=== PATIENT | male | born 1995 | race Caucasian/White ===

== ENCOUNTER 2022-01-27 17:28 | Emergency (ER) | payer OTHER ==
[2022-01-27 17:52] VITALS: BP 138/66; PULSE 69; TEMP 98; BMI 25.7
[2022-01-27] MEDS ORDERED: IBUPROFEN 600 MG TABLET (FP) PO ONE ×2 (18:47→18:48)
[2022-01-27] MEDS ORDERED: ACETAMINOPHEN 500 MG TABLET (FP) PO ONE (18:47)
[2022-01-27] MEDS ORDERED: ACETAMINOPHEN 500 MG TABLET (FP) ONE (18:48)
== END 2022-01-27 20:35 | disposition home or self-care (01) ==
LOC: JERFT 17:28
DX: S69.92XA Unspecified injury of left wrist, hand and finger(s), initial encounter (principal); W23.0XXA Caught, crushed, jammed, or pinched between moving objects, initial encounter
CPT/HCPCS: 73140-TC-LT-FY; 99283-25